=== PATIENT | male | born 1975 | race Caucasian/White ===

== ENCOUNTER 2022-01-31 19:20 | Emergency (ER) | payer OTHER ==
[2022-01-31] MEDS ORDERED: OMNICEF 300 MG300 MG PO (21:37)
== END 2022-01-31 21:44 | disposition home or self-care (01) ==
LOC: ER1 19:20
DX: S02.40CA Maxillary fracture, right side, initial encounter for closed fracture (principal); S00.81XA Abrasion of other part of head, initial encounter; W01.0XXA Fall on same level from slipping, tripping and stumbling without subsequent striking against object, initial encounter; F17.290 Nicotine dependence, other tobacco product, uncomplicated
CPT/HCPCS: 70486; 96372; 99284; J0690; J1885